=== PATIENT | male | born 1985 | race Caucasian/White ===

== ENCOUNTER 2018-01-27 18:26 | Inpatient (IN) ==
[~2018-01-27 18:26] MED LIST: *HR* Etomidate 20 MG/10 ML AMPUL IVP ONE; *HR* Rocuronium Bromide 100 MG/10 ML VIAL IVC ONE
[2018-01-27] MEDS ORDERED: 0.9 % Sodium Chloride 1,000 ML IVC ONE ×2 (18:41→19:21)
[2018-01-27] MEDS ORDERED: Isovue-370 500 ML INFUS..BTL IV ONE ×2 (18:41→19:00)
--- NOTE | 2018-01-27 18:44 | Emergency Department Note ---
Disposition Clinical Impression: Overdose, Hypoxia, Respiratory failure, Aspiration pneumonia, Severe sepsis Disposition: Admitted As Inpatient Condition: Serious General Adult HPI - General Chief complaint: ED Overdose Time Seen by Provider: 01/27/18 18:42 Source: EMS Mode of arrival: EMS Limitations: altered mental status Nursing Notes Reviewed: Yes Vital Signs Reviewed: Yes - History of Present Illness HPI Narrative: Patient is a 32-year-old male coming in by squad a call was placed concern for overdose. Patient arrived by squad the patient received 8 mg of Narcan nasally and 4 mg IV with no response initially with pulse oxygen saturations in the 60% . On arrival to the ED the patient was alert. While undergoing primary assessment the patient's oxygen saturation was 80% and his temperature was found to be 96.5% so the patient's airway was taken over, patient was intubated and Bear hugger was placed. Pain Scale: 0 - Related Data Home Medications Medication Instructions Recorded Confirmed No Known Home Drugs 01/28/18 01/28/18 Allergies Allergy/AdvReac Type Severity Reaction Status Date / Time citalopram [From Celexa] AdvReac See Verified 01/27/18 18:35 Comments Limitations: ROS unobtainable due to patients medical condition Past Medical History - Past Medical History Attestation: Yes The following information was validated with the patient. Medical history: Reports: hepatitis Psychiatric history: Reports: anxiety - Social History Smoking Status: Unknown if ever smoked Smokeless Tobacco Status: No Alcohol use: Reports: occasionally Drug use: Reports: marijuana, IV Drug Use Physical Exam On arrival patient's pulse oxygenation is 60%, heart rate was tachycardic in the 130s blood pressure was stable and respiratory 22. - General Limitations: altered mental status General appearance: lethargic, in distress - Head Head exam: atraumatic, normal inspection - Eye Eye exam: Present: normal appearance, PERRL - ENT ENT exam: normal exam, mucous membranes dry - Neck Neck exam: Present: normal inspection, trachea midline - Chest Chest inspection: Present: normal inspection, symmetric chest wall rise - Respiratory Respiratory exam: Present: normal lung sounds bilaterally, respiratory distress - Cardiovascular Cardiovascular exam: Present: tachycardia, normal heart sounds, +S1, +S2 - Abdominal Exam Abdominal exam: Present: soft, Non-Tender, hypoactive bowel sounds - Neurological Exam Neurological exam: Present: alert - Skin Skin exam: Present: dry Course Course Narrative: Due to patient's low oxygen saturation 80% even with nonrebreather mask stereos deemed unsafe and there are concerns of aspiration plan at this time was to control the patient's airway. Patient was given etomidate and rocuronium for an ET tube was placed successful on the first attempt. Patient's oxygen saturation remains at 80%. Prior to intubation the patient was alert and he was speaking however he was also somnolent. Patient will undergo a head CT. Vital Signs Temperature 96.5 F L 01/27/18 18:28 Pulse Rate 114 01/27/18 18:28 Respiratory Rate 24 01/27/18 18:28 Blood Pressure 114/89 01/27/18 18:28 O2 Sat by Pulse Oximetry 66 01/27/18 18:28 Temperature 99.6 F 01/28/18 07:42 Pulse Rate 96 01/28/18 10:00 Respiratory Rate 20 01/28/18 10:00 Blood Pressure 109/53 01/28/18 10:00 O2 Sat by Pulse Oximetry 95 01/28/18 10:00 Oxygen Delivery Oxygen Delivery Ventilator Medical Decision Making - Medical Records Medical records reviewed: Yes I reviewed the patient's medical records. - Lab Data Result diagrams: 01/28/18 02:51 01/28/18 02:51 Lab Results 01/27/18 01/27/18 01/27/18 Range/Units 18:41 18:41 18:42 WBC 28.0 H (4.3-11.1) K/mcL RBC 5.32 (4.19-5.50) M/mcL Hgb 16.4 (12.9-16.9) g/dL Hct 50.1 (37.5-50.1) % MCV 94.2 (83.0-100.0) fL MCH 30.8 (28.0-33.3) pg MCHC 32.7 (31.6-35.5) g/dL RDW 12.6 (11.5-14.5) % Plt Count 411 H (140-400) K/mcL MPV 8.5 L (9.4-12.4) fL Immature Gran % 1.3 (0-4) % Seg Neutrophils % 81.0 % Lymphocytes % 14.3 % Monocytes % 2.7 % Eosinophils % 0.4 % Basophils % 0.3 % Neutrophils # 22.7 H (1.6-8.9) K/mcL Lymphocytes # 4.0 (0.6-4.6) K/mcL Monocytes # 0.8 (0.0-1.3) K/mcL Eosinophils # 0.1 (0.0-0.6) K/mcL Basophils # 0.1 (0.0-0.2) K/mcL Toxic Granulation Present A (Not Present) Platelet Estimate Normal (Normal) Sample Site ABG pH (7.32-7.45) pH Units ABG pCO2 (35-45) mmHg ABG pO2 (85-104) mmHg ABG HCO3 (21-27) mEq/L ABG Total CO2 (20-26) mEq/L ABG O2 Saturation (95-98) % ABG Base Excess (-2 to 3) mEq/L Niles Test Respiration Rate O2 Delivery Device Blood Gas Modality Inspired O2 (1-15=lpm [id number]=%) Tidal Volume cc PEEP cm H2O Sodium 136 (136-145) mEq/L Potassium 4.1 (3.5-5.1) mEq/L Chloride 99 (98-107) mEq/L Carbon Dioxide 26 (23-29) mEq/L BUN 13 (6-20) mg/dL Creatinine 1.21 (0.70-1.30) mg/dL Est GFR ( Amer) > 60 (> 60) Est GFR (Non-Af Amer) > 60 (> 60) BUN/Creatinine Ratio 11 (6-26) Glucose 161 H (70-105) mg/dL Calculated Osmolality 286 (280-300) Lactic Acid 3.4 H (0.5-2.2) mmol/L Calcium 9.2 (8.6-10.3) mg/dL Total Bilirubin 0.4 (0.3-1.0) mg/dL Direct Bilirubin 0.1 (0.0-0.2) mg/dL Indirect Bilirubin 0.3 (0.0-1.2) mg/dL AST 38 (13-39) Units/L ALT 47 (7-52) Units/L Alkaline Phosphatase 88 (34-104) Units/L Ammonia (16-53) mcmol/L Troponin I < 0.03 (< 0.04) ng/mL Serum Total Protein 7.9 (6.4-8.9) g/dL Albumin 3.9 (3.5-5.7) g/dL Globulin 4.0 H (2.4-3.5) g/dL Albumin/Globulin Ratio 1.0 L (1.1-2.2) Urine Color (Yellow) Urine Clarity (Clear) Urine pH (5.0-8.0) pH Units Ur Specific [place] (1.010-1.025) Urine Protein (Neg-Trace) mg/dL Urine Glucose (UA) (Normal) mg/dL Urine Ketones (Negative) mg/dL Urine Blood (Negative) Urine Nitrite (Negative) Urine Bilirubin (Negative) Urine Urobilinogen (Normal) mg/dL Ur Leukocyte Esterase (Negative) Urine Microscopic WBC (0-3) per hpf Ur Squamous Epith Cells (None-Few) per lpf Urine Bacteria (None-Few) per hpf Hyaline Casts (None-Few) per lpf Urine Sperm Salicylates < 2.5 L (15.0-30.0) mg/dL Urine Opiates Screen (Otipiz=813) ng/mL Acetaminophen < 10 L (10-20) mcg/mL Ur Barbiturates Screen (Fmhjye=282) ng/mL Ur Phencyclidine Scrn (Cutoff=25) ng/mL Ur Amphetamines Screen (Eiksuh=6433) ng/mL U Benzodiazepines Scrn (Qwvaoc=174) ng/mL Urine Cocaine Screen (Cutoff= 300) ng/mL U Marijuana (THC) Screen (Cutoff = 50) ng/mL Ethyl Alcohol < 10 (Less than 10) mg/dL 01/27/18 01/27/18 01/27/18 Range/Units 19:14 19:14 19:29 WBC (4.3-11.1) K/mcL RBC (4.19-5.50) M/mcL Hgb (12.9-16.9) g/dL Hct (37.5-50.1) % MCV (83.0-100.0) fL MCH (28.0-33.3) pg MCHC (31.6-35.5) g/dL RDW (11.5-14.5) % Plt Count (140-400) K/mcL MPV (9.4-12.4) fL Immature Gran % (0-4) % Seg Neutrophils % % Lymphocytes % % Monocytes % % Eosinophils % % Basophils % % Neutrophils # (1.6-8.9) K/mcL Lymphocytes # (0.6-4.6) K/mcL Monocytes # (0.0-1.3) K/mcL Eosinophils # (0.0-0.6) K/mcL Basophils # (0.0-0.2) K/mcL Toxic Granulation (Not Present) Platelet Estimate (Normal) Sample Site R Radial ABG pH 7.30 L (7.32-7.45) pH Units ABG pCO2 55 H (35-45) mmHg ABG pO2 76 L (85-104) mmHg ABG HCO3 27 (21-27) mEq/L ABG Total CO2 29 H (20-26) mEq/L ABG O2 Saturation 93 L (95-98) % ABG Base Excess -1 (-2 to 3) mEq/L Niles Test Positive Respiration Rate 16 O2 Delivery Device Adult Vent Blood Gas Modality ASSIST CONTROL Inspired O2 100.0 (1-15=lpm wg58-031=%) Tidal Volume 550 cc PEEP 12 cm H2O Sodium (136-145) mEq/L Potassium (3.5-5.1) mEq/L Chloride (98-107) mEq/L Carbon Dioxide (23-29) mEq/L BUN (6-20) mg/dL Creatinine (0.70-1.30) mg/dL Est GFR ( Amer) (> 60) Est GFR (Non-Af Amer) (> 60) BUN/Creatinine Ratio (6-26) Glucose (70-105) mg/dL Calculated Osmolality (280-300) Lactic Acid (0.5-2.2) mmol/L Calcium (8.6-10.3) mg/dL Total Bilirubin (0.3-1.0) mg/dL Direct Bilirubin (0.0-0.2) mg/dL Indirect Bilirubin (0.0-1.2) mg/dL AST (13-39) Units/L ALT (7-52) Units/L Alkaline Phosphatase (34-104) Units/L Ammonia (16-53) mcmol/L Troponin I (< 0.04) ng/mL Serum Total Protein (6.4-8.9) g/dL Albumin (3.5-5.7) g/dL Globulin (2.4-3.5) g/dL Albumin/Globulin Ratio (1.1-2.2) Urine Color Yellow (Yellow) Urine Clarity Clear (Clear) Urine pH 6.0 (5.0-8.0) pH Units Ur Specific [place] >= 1.030 H (1.010-1.025) Urine Protein 30 H (Neg-Trace) mg/dL Urine Glucose (UA) Normal (Normal) mg/dL Urine Ketones Negative (Negative) mg/dL Urine Blood Negative (Negative) Urine Nitrite Negative (Negative) Urine Bilirubin Negative (Negative) Urine Urobilinogen Normal (Normal) mg/dL Ur Leukocyte Esterase Negative (Negative) Urine Microscopic WBC 3-5 H (0-3) per hpf Ur Squamous Epith Cells Few (None-Few) per lpf Urine Bacteria Few (None-Few) per hpf Hyaline Casts Few (None-Few) per lpf Urine Sperm Present Salicylates (15.0-30.0) mg/dL Urine Opiates Screen Positive H (Okhvna=821) ng/mL Acetaminophen (10-20) mcg/mL Ur Barbiturates Screen Negative (Wixrux=693) ng/mL Ur Phencyclidine Scrn Negative (Cutoff=25) ng/mL Ur Amphetamines Screen Positive H (Ghxemi=7235) ng/mL U Benzodiazepines Scrn Positive H (Ilbcex=619) ng/mL Urine Cocaine Screen Negative (Cutoff= 300) ng/mL U Marijuana (THC) Screen Positive H (Cutoff = 50) ng/mL Ethyl Alcohol (Less than 10) mg/dL 01/27/18 Range/Units 20:20 WBC (4.3-11.1) K/mcL RBC (4.19-5.50) M/mcL Hgb (12.9-16.9) g/dL Hct (37.5-50.1) % MCV (83.0-100.0) fL MCH (28.0-33.3) pg MCHC (31.6-35.5) g/dL RDW (11.5-14.5) % Plt Count (140-400) K/mcL MPV (9.4-12.4) fL Immature Gran % (0-4) % Seg Neutrophils % % Lymphocytes % % Monocytes % % Eosinophils % % Basophils % % Neutrophils # (1.6-8.9) K/mcL Lymphocytes # (0.6-4.6) K/mcL Monocytes # (0.0-1.3) K/mcL Eosinophils # (0.0-0.6) K/mcL Basophils # (0.0-0.2) K/mcL Toxic Granulation (Not Present) Platelet Estimate (Normal) Sample Site ABG pH (7.32-7.45) pH Units ABG pCO2 (35-45) mmHg ABG pO2 (85-104) mmHg ABG HCO3 (21-27) mEq/L ABG Total CO2 (20-26) mEq/L ABG O2 Saturation (95-98) % ABG Base Excess (-2 to 3) mEq/L Niles Test Respiration Rate O2 Delivery Device Blood Gas Modality Inspired O2 (1-15=lpm ca43-359=%) Tidal Volume cc PEEP cm H2O Sodium (136-145) mEq/L Potassium (3.5-5.1) mEq/L Chloride (98-107) mEq/L Carbon Dioxide (23-29) mEq/L BUN (6-20) mg/dL Creatinine (0.70-1.30) mg/dL Est GFR ( Amer) (> 60) Est GFR (Non-Af Amer) (> 60) BUN/Creatinine Ratio (6-26) Glucose (70-105) mg/dL Calculated Osmolality (280-300) Lactic Acid (0.5-2.2) mmol/L Calcium (8.6-10.3) mg/dL Total Bilirubin (0.3-1.0) mg/dL Direct Bilirubin (0.0-0.2) mg/dL Indirect Bilirubin (0.0-1.2) mg/dL AST (13-39) Units/L ALT (7-52) Units/L Alkaline Phosphatase (34-104) Units/L Ammonia 57 H (16-53) mcmol/L Troponin I (< 0.04) ng/mL Serum Total Protein (6.4-8.9) g/dL Albumin (3.5-5.7) g/dL Globulin (2.4-3.5) g/dL Albumin/Globulin Ratio (1.1-2.2) Urine Color (Yellow) Urine Clarity (Clear) Urine pH (5.0-8.0) pH Units Ur Specific [place] (1.010-1.025) Urine Protein (Neg-Trace) mg/dL Urine Glucose (UA) (Normal) mg/dL Urine Ketones (Negative) mg/dL Urine Blood (Negative) Urine Nitrite (Negative) Urine Bilirubin (Negative) Urine Urobilinogen (Normal) mg/dL Ur Leukocyte Esterase (Negative) Urine Microscopic WBC (0-3) per hpf Ur Squamous Epith Cells (None-Few) per lpf Urine Bacteria (None-Few) per hpf Hyaline Casts (None-Few) per lpf Urine Sperm Salicylates (15.0-30.0) mg/dL Urine Opiates Screen (Xhxkqv=573) ng/mL Acetaminophen (10-20) mcg/mL Ur Barbiturates Screen (Bdgvsu=987) ng/mL Ur Phencyclidine Scrn (Cutoff=25) ng/mL Ur Amphetamines Screen (Tqsvur=1623) ng/mL U Benzodiazepines Scrn (Phihkk=423) ng/mL Urine Cocaine Screen (Cutoff= 300) ng/mL U Marijuana (THC) Screen (Cutoff = 50) ng/mL Ethyl Alcohol (Less than 10) mg/dL S.B.A.R. - S.B.A.R. Situation: Demographics, MOA Background: Presenting Complaint, Relevant PMH, Meds, & Allergies Assessment: Vital Signs, Course and respsone to treatment, Exam Concerns, Patient/Family Expectation, Pertinant Lab Results Recommendation: Barrier(s) to disposition, Recommendation based on pending studies, treatments, or consults S.B.A.R. Report Given to: Dr. Diamond and Dr. Bush S.B.A.R. Repor Time: 19:00
[2018-01-27] MEDS ORDERED: Propofol 500 MG/50 ML INFUS..BTL IVC SCH (18:45)
--- NOTE | 2018-01-27 18:49 | Emergency Department Note ---
Disposition Clinical Impression: Hypoxia Overdose Qualifiers: Encounter type: initial encounter Injury intent: accidental or unintentional Qualified Code(s): T50.901A - Poisoning by unspecified drugs, medicaments and biological substances, accidental (unintentional), initial encounter Disposition: Admitted As Inpatient Referrals: NONE,PCP [Primary Care Provider] - Forms: ED Satisfaction Letter General Adult HPI - General Chief complaint: ED Overdose Stated complaint: OD/unresponsive Time Seen by Provider: 01/27/18 18:42 Source: EMS Mode of arrival: EMS Limitations: altered mental status - History of Present Illness Pain Scale: 0 - Related Data Allergies Allergy/AdvReac Type Severity Reaction Status Date / Time citalopram [From Celexa] AdvReac See Verified 01/27/18 18:35 Comments Past Medical History - Past Medical History Medical history: Reports: hepatitis Psychiatric history: Reports: anxiety - Social History Smoking Status: Unknown if ever smoked Smokeless Tobacco Status: No Alcohol use: Reports: occasionally Drug use: Reports: marijuana, IV Drug Use Physical Exam - General Limitations: altered mental status General appearance: lethargic, in distress Course Vital Signs Temperature 96.5 F L 01/27/18 18:28 Pulse Rate 114 01/27/18 18:28 Respiratory Rate 24 01/27/18 18:28 Blood Pressure 114/89 01/27/18 18:28 O2 Sat by Pulse Oximetry 66 01/27/18 18:28 Temperature 96.5 F L 01/27/18 18:28 Pulse Rate 125 01/27/18 18:41 Respiratory Rate 24 01/27/18 18:41 Blood Pressure 125/76 01/27/18 18:41 O2 Sat by Pulse Oximetry 83 01/27/18 18:41 Oxygen Delivery Oxygen Delivery Ambu Bag Attestation Statement - Attestation Attestation: I examined this patient and my medical decision-making was reviewed with the Resident Physician. I agree with the documented findings, disposition and treatment plan as described except to the extent set forth below. 32 sharee [place] male prsente to the ED via EMS after an unknown overdose. Rona was found at the house with needle but genomics scientist couldnt figured out what had taken. He had recievd 12mg of narcan without improvement and on arrival he was 66% and although he was answering questions he was flucnatcting in mental status and never got above 80% on NRB. Rona was intubated upon arrival. WE will start overdose workup and then sign out to night team for followp on workp and admission to ICU. proprfol for sedation.
[2018-01-27 19:02] LABS: Basophils % 0.3 %; Eosinophils % 0.4 %; Mean Corpuscular HGB Conc 32.7 g/dL (31.6-35.5)
[2018-01-27 19:03] LABS: Basophils # 0.1 K/mcL (0.0-0.2); Eosinophils # 0.1 K/mcL (0.0-0.6); Hematocrit 50.1 % (37.5-50.1); Hemoglobin 16.4 g/dL (12.9-16.9); Immature Granulocytes % 1.3 % (0-4); Lymphocytes % 14.3 %; Mean Corpuscular Hemoglobin 30.8 pg (28.0-33.3); Mean Corpuscular Volume 94.2 fL (83.0-100.0); Mean Platelet Volume 8.5 fL (9.4-12.4); Monocytes # 0.8 K/mcL (0.0-1.3); Monocytes % 2.7 %; Neutrophils # 22.7 K/mcL (1.6-8.9); Platelet Count 411 K/mcL (140-400); Red Blood Count 5.32 M/mcL (4.19-5.50); Red Cell Distribution Width 12.6 % (11.5-14.5)
[2018-01-27] MEDS ORDERED: *HR* Rocuronium Bromide 50 MG/5 ML VIAL IVP ONE ×2 (19:06→20:13)
[2018-01-27] MEDS ORDERED: *HR* Etomidate 20 MG/10 ML AMPUL IVP ONE ×2 (19:06→19:22)
[2018-01-27 19:20] LABS: Platelet Estimate Normal (Normal); Toxic Granulation Present (Not Present)
[2018-01-27 19:23] LABS: Bilirubin,Urine Negative (Negative); Blood,Urine Negative (Negative); Clarity,Urine Clear (Clear); Color,Urine Yellow (Yellow); Glucose,Urine (UA) Normal (Normal); Ketones,Urine Negative (Negative); Leukocyte Esterase,Urine Negative (Negative); Nitrite,Urine Negative (Negative); Protein,Urine 30 mg/dL (Neg-Trace); Specific Gravity,Urine >= 1.030 (1.010-1.025); Urobilinogen,Urine Normal (Normal)
[2018-01-27 19:23] LABS: Acetaminophen < 10 mcg/mL (10-20)
[2018-01-27] MEDS ORDERED: Piperacillin/Tazobactam 3.375 GM in 0.9 % Sodium Chloride Mini Bag 100 ML IVPB ONE (19:24)
[2018-01-27 19:29] LABS: Alanine Aminotransferase 47 Units/L (7-52); Albumin 3.9 g/dL (3.5-5.7); Alkaline Phosphatase 88 Units/L (34-104); Aspartate Amino Transferase 38 Units/L (13-39); BUN/Creatinine Ratio 11 (6-26); Bilirubin,Direct 0.1 mg/dL (0.0-0.2); Bilirubin,Indirect 0.3 mg/dL (0.0-1.2); Bilirubin,Total 0.4 mg/dL (0.3-1.0); Blood Urea Nitrogen 13 mg/dL (6-20); Calcium 9.2 mg/dL (8.6-10.3); Carbon Dioxide 26 mEq/L (23-29); Chloride 99 mEq/L (98-107); Ethanol < 10 mg/dL (Less than 10); Glucose 161 mg/dL (70-105); Osmolality,Calculated 286 (280-300); Potassium 4.1 mEq/L (3.5-5.1); Salicylate < 2.5 mg/dL (15.0-30.0); Sodium 136 mEq/L (136-145); Total Protein 7.9 g/dL (6.4-8.9); Troponin I < 0.03 ng/mL (< 0.04); eGFR For African Americans > 60 (> 60); eGFR For Non-African Americans > 60 (> 60)
[2018-01-27 19:32] LABS: Bacteria,Urine Few per hpf (None-Few); Hyaline Casts,Urine Few per lpf (None-Few); Sperm,Urine Present; Squamous Epithelial Cell,Urine Few per lpf (None-Few)
[2018-01-27 19:33] LABS: ABG Base Excess -1 mEq/L (-2 to 3); ABG HCO3 27 mEq/L (21-27); ABG Oxygen Saturation 93 % (95-98); ABG PCO2 55 mmHg (35-45); ABG PO2 76 mmHg (85-104); ABG TCO2 29 mEq/L (20-26); Blood Gas Modality ASSIST CONTROL; Blood Gas PEEP 12 cm H2O; Blood Gas Respiration Rate 16; Blood Gas VT 550 cc
[2018-01-27 19:49] LABS: Amphetamine Screen,Urine Positive ng/mL (Cutoff=1000); Barbiturate Screen,Urine Negative ng/mL (Cutoff=200); Benzodiazepines Screen,Urine Positive ng/mL (Cutoff=200); Cannabinoid Screen,Urine Positive ng/mL (Cutoff = 50); Cocaine Screen,Urine Negative ng/mL (Cutoff= 300); Opiate Screen,Urine Positive ng/mL (Cutoff=300); Phencyclidine Screen,Urine Negative ng/mL (Cutoff=25)
[2018-01-27] MEDS ORDERED: *HR* Midazolam HCl 2 MG/2 ML VIAL ONE ×2 (19:59→20:13)
[2018-01-27] MEDS ORDERED: *HR* Midazolam HCl 2 MG/2 ML VIAL IVP ONE ×2 (20:04→20:12)
[2018-01-27] MEDS: Dexmedetomidine HCl 200 MCG/50 ML MLS IVC SCH (20:06)
--- NOTE | 2018-01-27 20:50 | Emergency Department Note ---
Disposition Clinical Impression: Hypoxia, Aspiration pneumonia, Severe sepsis Overdose Qualifiers: Encounter type: initial encounter Injury intent: accidental or unintentional Qualified Code(s): T50.901A - Poisoning by unspecified drugs, medicaments and biological substances, accidental (unintentional), initial encounter Respiratory failure Qualifiers: Chronicity: acute Respiratory failure complication: hypoxia Qualified Code(s): J96.01 - Acute respiratory failure with hypoxia Disposition: Admitted As Inpatient Condition: Serious General Adult HPI - General Chief complaint: ED Overdose Stated complaint: OD/unresponsive Time Seen by Provider: 01/27/18 18:42 Source: EMS Mode of arrival: EMS Limitations: altered mental status Nursing Notes Reviewed: Yes Vital Signs Reviewed: Yes - History of Present Illness HPI Narrative: Patient was signed out by the prior provider. Please see their documentation for complete history and physical. Briefly, the patient was found unresponsive. Patient does have a history of substance abuse with drug paraphernalia around. Patient was given 12mg Narcan which gradually improved his symptoms until arrival to the emergency department. At the emergency department it appears the patient had fluctuant levels of consciousness. Patient was found to be hypoxic not improving on BiPAP. The prior provider decided the patient required intubation. Patient's neurologic exam prior to induration appeared to be alert with fluctuating levels of consciousness moving all extremities and following commands. Pain Scale: 0 - Related Data Allergies Allergy/AdvReac Type Severity Reaction Status Date / Time citalopram [From Celexa] AdvReac See Verified 01/27/18 18:35 Comments Limitations: ROS unobtainable due to patients medical condition Past Medical History - Past Medical History Source: old records reviewed Medical history: Reports: hepatitis Psychiatric history: Reports: anxiety - Social History Smoking Status: Unknown if ever smoked Smokeless Tobacco Status: No Alcohol use: Reports: occasionally Drug use: Reports: marijuana, IV Drug Use Physical Exam - General Limitations: altered mental status General appearance: lethargic, in distress - Head Head exam: atraumatic, normocephalic, normal inspection - Eye Eye exam: Present: normal appearance, PERRL - ENT ENT exam: normal exam, other (Endotracheal tube present.) - Neck Neck exam: Present: normal inspection - Chest Chest inspection: Present: normal inspection, symmetric chest wall rise. Absent : rash - Respiratory Respiratory exam: Present: other (Chemical breath sounds) - Cardiovascular Cardiovascular exam: Present: regular rate, tachycardia - Abdominal Exam Abdominal exam: Present: soft - Extremities Exam Extremities exam: Present: normal inspection - Back Exam Back exam: Present: normal inspection - Neurological Exam Neurological exam: Present: other (Mechanically ventilated sedated.) Course Course Narrative: Patient is mechanically ventilated and sedated. Patient will arouse and breathing over the vent. Patient's initial chest x-ray was concerning for possible pneumonia. Patient likely aspirated. Patient does have a leukocytosis and is concerning for possible sepsis with an elevated lactate. Patient was covered for most likely source of infection the lungs. Awaiting CT angios of the neck CT of the head CTA of the chest. Patient will be admitted to the ICU for further management and care. - Reevaluation(s) Reevaluation #1: Patient has been difficult to sedate. Will attempt to transition over to Versed. Time: 21:55 Vital Signs Temperature 96.5 F L 01/27/18 18:28 Pulse Rate 114 01/27/18 18:28 Respiratory Rate 24 01/27/18 18:28 Blood Pressure 114/89 01/27/18 18:28 O2 Sat by Pulse Oximetry 66 01/27/18 18:28 Temperature 99.7 F H 01/27/18 22:53 Pulse Rate 90 01/28/18 03:00 Respiratory Rate 20 01/28/18 03:00 Blood Pressure 118/69 01/28/18 03:00 O2 Sat by Pulse Oximetry 98 01/28/18 03:00 Oxygen Delivery Oxygen Delivery Ventilator Medical Decision Making - [facility] Narrative Medical decision making narrative: Patient was signed out by the prior provider. Briefly the patient was a 32-year -old male who presented for overdose requiring multiple doses of Narcan. Patient was found to be hypoxic requiring intubation. Patient's chest x-ray as well as CAT scan findings are concerning for aspiration pneumonia. Patient was started on broad-spectrum antibiotics. Patient's labs are also consistent with infection. Patient had CT of the head as well as anterior the neck chest. Patient was found to have a lactic acidosis given the patient's clinical exam findings. Patient was treated with IV fluids. Patient will be admitted to the ICU for further management. If no family at bedside to provide any additional history. - Lab Data Lab results reviewed: Yes I reviewed the patient's lab results. Result diagrams: 01/27/18 18:41 01/27/18 18:41 Lab Results 01/27/18 01/27/18 01/27/18 Range/Units 18:41 18:41 18:42 WBC 28.0 H (4.3-11.1) K/mcL RBC 5.32 (4.19-5.50) M/mcL Hgb 16.4 (12.9-16.9) g/dL Hct 50.1 (37.5-50.1) % MCV 94.2 (83.0-100.0) fL MCH 30.8 (28.0-33.3) pg MCHC 32.7 (31.6-35.5) g/dL RDW 12.6 (11.5-14.5) % Plt Count 411 H (140-400) K/mcL MPV 8.5 L (9.4-12.4) fL Immature Gran % 1.3 (0-4) % Seg Neutrophils % 81.0 % Lymphocytes % 14.3 % Monocytes % 2.7 % Eosinophils % 0.4 % Basophils % 0.3 % Neutrophils # 22.7 H (1.6-8.9) K/mcL Lymphocytes # 4.0 (0.6-4.6) K/mcL Monocytes # 0.8 (0.0-1.3) K/mcL Eosinophils # 0.1 (0.0-0.6) K/mcL Basophils # 0.1 (0.0-0.2) K/mcL Toxic Granulation Present A (Not Present) Platelet Estimate Normal (Normal) Sample Site ABG pH (7.32-7.45) pH Units ABG pCO2 (35-45) mmHg ABG pO2 (85-104) mmHg ABG HCO3 (21-27) mEq/L ABG Total CO2 (20-26) mEq/L ABG O2 Saturation (95-98) % ABG Base Excess (-2 to 3) mEq/L Niles Test Respiration Rate O2 Delivery Device Blood Gas Modality Inspired O2 (1-15=lpm [id number]=%) Tidal Volume cc PEEP cm H2O Sodium 136 (136-145) mEq/L Potassium 4.1 (3.5-5.1) mEq/L Chloride 99 (98-107) mEq/L Carbon Dioxide 26 (23-29) mEq/L BUN 13 (6-20) mg/dL Creatinine 1.21 (0.70-1.30) mg/dL Est GFR ( Amer) > 60 (> 60) Est GFR (Non-Af Amer) > 60 (> 60) BUN/Creatinine Ratio 11 (6-26) Glucose 161 H (70-105) mg/dL Calculated Osmolality 286 (280-300) Lactic Acid 3.4 H (0.5-2.2) mmol/L Calcium 9.2 (8.6-10.3) mg/dL Total Bilirubin 0.4 (0.3-1.0) mg/dL Direct Bilirubin 0.1 (0.0-0.2) mg/dL Indirect Bilirubin 0.3 (0.0-1.2) mg/dL AST 38 (13-39) Units/L ALT 47 (7-52) Units/L Alkaline Phosphatase 88 (34-104) Units/L Ammonia (16-53) mcmol/L Troponin I < 0.03 (< 0.04) ng/mL Serum Total Protein 7.9 (6.4-8.9) g/dL Albumin 3.9 (3.5-5.7) g/dL Globulin 4.0 H (2.4-3.5) g/dL Albumin/Globulin Ratio 1.0 L (1.1-2.2) Urine Color (Yellow) Urine Clarity (Clear) Urine pH (5.0-8.0) pH Units Ur Specific [place] (1.010-1.025) Urine Protein (Neg-Trace) mg/dL Urine Glucose (UA) (Normal) mg/dL Urine Ketones (Negative) mg/dL Urine Blood (Negative) Urine Nitrite (Negative) Urine Bilirubin (Negative) Urine Urobilinogen (Normal) mg/dL Ur Leukocyte Esterase (Negative) Urine Microscopic WBC (0-3) per hpf Ur Squamous Epith Cells (None-Few) per lpf Urine Bacteria (None-Few) per hpf Hyaline Casts (None-Few) per lpf Urine Sperm Salicylates < 2.5 L (15.0-30.0) mg/dL Urine Opiates Screen (Rtjxru=784) ng/mL Acetaminophen < 10 L (10-20) mcg/mL Ur Barbiturates Screen (Hqfgxg=702) ng/mL Ur Phencyclidine Scrn (Cutoff=25) ng/mL Ur Amphetamines Screen (Tlqtbc=2098) ng/mL U Benzodiazepines Scrn (Fdepqq=544) ng/mL Urine Cocaine Screen (Cutoff= 300) ng/mL U Marijuana (THC) Screen (Cutoff = 50) ng/mL Ethyl Alcohol < 10 (Less than 10) mg/dL 01/27/18 01/27/18 01/27/18 Range/Units 19:14 19:14 19:29 WBC (4.3-11.1) K/mcL RBC (4.19-5.50) M/mcL Hgb (12.9-16.9) g/dL Hct (37.5-50.1) % MCV (83.0-100.0) fL MCH (28.0-33.3) pg MCHC (31.6-35.5) g/dL RDW (11.5-14.5) % Plt Count (140-400) K/mcL MPV (9.4-12.4) fL Immature Gran % (0-4) % Seg Neutrophils % % Lymphocytes % % Monocytes % % Eosinophils % % Basophils % % Neutrophils # (1.6-8.9) K/mcL Lymphocytes # (0.6-4.6) K/mcL Monocytes # (0.0-1.3) K/mcL Eosinophils # (0.0-0.6) K/mcL Basophils # (0.0-0.2) K/mcL Toxic Granulation (Not Present) Platelet Estimate (Normal) Sample Site R Radial ABG pH 7.30 L (7.32-7.45) pH Units ABG pCO2 55 H (35-45) mmHg ABG pO2 76 L (85-104) mmHg ABG HCO3 27 (21-27) mEq/L ABG Total CO2 29 H (20-26) mEq/L ABG O2 Saturation 93 L (95-98) % ABG Base Excess -1 (-2 to 3) mEq/L Niles Test Positive Respiration Rate 16 O2 Delivery Device Adult Vent Blood Gas Modality ASSIST CONTROL Inspired O2 100.0 (1-15=lpm [id number]=%) Tidal Volume 550 cc PEEP 12 cm H2O Sodium (136-145) mEq/L Potassium (3.5-5.1) mEq/L Chloride (98-107) mEq/L Carbon Dioxide (23-29) mEq/L BUN (6-20) mg/dL Creatinine (0.70-1.30) mg/dL Est GFR ( Amer) (> 60) Est GFR (Non-Af Amer) (> 60) BUN/Creatinine Ratio (6-26) Glucose (70-105) mg/dL Calculated Osmolality (280-300) Lactic Acid (0.5-2.2) mmol/L Calcium (8.6-10.3) mg/dL Total Bilirubin (0.3-1.0) mg/dL Direct Bilirubin (0.0-0.2) mg/dL Indirect Bilirubin (0.0-1.2) mg/dL AST (13-39) Units/L ALT (7-52) Units/L Alkaline Phosphatase (34-104) Units/L Ammonia (16-53) mcmol/L Troponin I (< 0.04) ng/mL Serum Total Protein (6.4-8.9) g/dL Albumin (3.5-5.7) g/dL Globulin (2.4-3.5) g/dL Albumin/Globulin Ratio (1.1-2.2) Urine Color Yellow (Yellow) Urine Clarity Clear (Clear) Urine pH 6.0 (5.0-8.0) pH Units Ur Specific [place] >= 1.030 H (1.010-1.025) Urine Protein 30 H (Neg-Trace) mg/dL Urine Glucose (UA) Normal (Normal) mg/dL Urine Ketones Negative (Negative) mg/dL Urine Blood Negative (Negative) Urine Nitrite Negative (Negative) Urine Bilirubin Negative (Negative) Urine Urobilinogen Normal (Normal) mg/dL Ur Leukocyte Esterase Negative (Negative) Urine Microscopic WBC 3-5 H (0-3) per hpf Ur Squamous Epith Cells Few (None-Few) per lpf Urine Bacteria Few (None-Few) per hpf Hyaline Casts Few (None-Few) per lpf Urine Sperm Present Salicylates (15.0-30.0) mg/dL Urine Opiates Screen Positive H (Znpsou=514) ng/mL Acetaminophen (10-20) mcg/mL Ur Barbiturates Screen Negative (Tpcksx=274) ng/mL Ur Phencyclidine Scrn Negative (Cutoff=25) ng/mL Ur Amphetamines Screen Positive H (Spcfnh=6060) ng/mL U Benzodiazepines Scrn Positive H (Pideqk=695) ng/mL Urine Cocaine Screen Negative (Cutoff= 300) ng/mL U Marijuana (THC) Screen Positive H (Cutoff = 50) ng/mL Ethyl Alcohol (Less than 10) mg/dL 01/27/18 Range/Units 20:20 WBC (4.3-11.1) K/mcL RBC (4.19-5.50) M/mcL Hgb (12.9-16.9) g/dL Hct (37.5-50.1) % MCV (83.0-100.0) fL MCH (28.0-33.3) pg MCHC (31.6-35.5) g/dL RDW (11.5-14.5) % Plt Count (140-400) K/mcL MPV (9.4-12.4) fL Immature Gran % (0-4) % Seg Neutrophils % % Lymphocytes % % Monocytes % % Eosinophils % % Basophils % % Neutrophils # (1.6-8.9) K/mcL Lymphocytes # (0.6-4.6) K/mcL Monocytes # (0.0-1.3) K/mcL Eosinophils # (0.0-0.6) K/mcL Basophils # (0.0-0.2) K/mcL Toxic Granulation (Not Present) Platelet Estimate (Normal) Sample Site ABG pH (7.32-7.45) pH Units ABG pCO2 (35-45) mmHg ABG pO2 (85-104) mmHg ABG HCO3 (21-27) mEq/L ABG Total CO2 (20-26) mEq/L ABG O2 Saturation (95-98) % ABG Base Excess (-2 to 3) mEq/L Niles Test Respiration Rate O2 Delivery Device Blood Gas Modality Inspired O2 (1-15=lpm [id number]=%) Tidal Volume cc PEEP cm H2O Sodium (136-145) mEq/L Potassium (3.5-5.1) mEq/L Chloride (98-107) mEq/L Carbon Dioxide (23-29) mEq/L BUN (6-20) mg/dL Creatinine (0.70-1.30) mg/dL Est GFR ( Amer) (> 60) Est GFR (Non-Af Amer) (> 60) BUN/Creatinine Ratio (6-26) Glucose (70-105) mg/dL Calculated Osmolality (280-300) Lactic Acid (0.5-2.2) mmol/L Calcium (8.6-10.3) mg/dL Total Bilirubin (0.3-1.0) mg/dL Direct Bilirubin (0.0-0.2) mg/dL Indirect Bilirubin (0.0-1.2) mg/dL AST (13-39) Units/L ALT (7-52) Units/L Alkaline Phosphatase (34-104) Units/L Ammonia 57 H (16-53) mcmol/L Troponin I (< 0.04) ng/mL Serum Total Protein (6.4-8.9) g/dL Albumin (3.5-5.7) g/dL Globulin (2.4-3.5) g/dL Albumin/Globulin Ratio (1.1-2.2) Urine Color (Yellow) Urine Clarity (Clear) Urine pH (5.0-8.0) pH Units Ur Specific [place] (1.010-1.025) Urine Protein (Neg-Trace) mg/dL Urine Glucose (UA) (Normal) mg/dL Urine Ketones (Negative) mg/dL Urine Blood (Negative) Urine Nitrite (Negative) Urine Bilirubin (Negative) Urine Urobilinogen (Normal) mg/dL Ur Leukocyte Esterase (Negative) Urine Microscopic WBC (0-3) per hpf Ur Squamous Epith Cells (None-Few) per lpf Urine Bacteria (None-Few) per hpf Hyaline Casts (None-Few) per lpf Urine Sperm Salicylates (15.0-30.0) mg/dL Urine Opiates Screen (Necxrr=303) ng/mL Acetaminophen (10-20) mcg/mL Ur Barbiturates Screen (Dhmnnm=257) ng/mL Ur Phencyclidine Scrn (Cutoff=25) ng/mL Ur Amphetamines Screen (Obrlee=2359) ng/mL U Benzodiazepines Scrn (Oiqvjv=641) ng/mL Urine Cocaine Screen (Cutoff= 300) ng/mL U Marijuana (THC) Screen (Cutoff = 50) ng/mL Ethyl Alcohol (Less than 10) mg/dL - Radiology Data Radiology results reviewed: Yes I reviewed the patient's radiology results. Chest X-Ray 01/27/18 18:41 IMPRESSION: Endotracheal and enteric tubes in place as above. Diffuse bilateral airspace disease, greater on the right, likely asymmetric edema. Extensive pneumonia, to include aspiration, could have this appearance as well. D/ / Jennifer Muñiz Cha, MD / Jennifer Muñiz Cha, MD Interpreting Provider: Jennifer Muñiz Cha, MD - EKG Data EKG #1 EKG attestation: Yes I reviewed and interpreted this EKG. EKG shows normal: sinus rhythm Rate: tachycardia Rhythm: NSR [place]/QRS: normal When compared to previous EKG there are: previous EKG unavailable Interpretation: no acute changes S.B.A.R. - S.B.A.RArabella Situation: Demographics Background: Presenting Complaint Assessment: Vital Signs, Course and respsone to treatment, Patient/Family Expectation Recommendation: Barrier(s) to disposition, Recommendation based on pending studies, treatments, or consults S.B.A.RArabella Report Given to: Dr. Yasmin Nye Repor Time: 21:47 Sepsis Reassessment Note - Evaluation Current Stage of Sepsis: severe sepsis Possible Source of Sepsis: pulmonary - Focused Exam Date of Encounter: 01/27/18 Time of Encounter: 21:39 Vital Signs: Vital Signs Temp Pulse Resp BP Pulse Ox 01/27/18 21:50 120 127/85 100 01/27/18 21:30 118 135/72 01/27/18 21:11 123 146/98 01/27/18 21:06 20 95 01/27/18 20:30 129 110/66 01/27/18 20:10 123 102/65 01/27/18 19:50 113 20 116/76 99 01/27/18 19:26 16 90 01/27/18 19:14 125 22 135/86 95 01/27/18 19:09 92 01/27/18 18:41 125 24 125/76 83 01/27/18 18:28 96.5 F L 114 24 114/89 66 Respiratory Exam: Present: crackles (mechanically ) Cardiovascular Exam: Present: RRR Capillary Refill: < 2 seconds Peripheral Pulse Strength: 2+ slightly diminished Peripheral Pulse Location: Radial Skin Exam: normal turgor
--- NOTE | 2018-01-27 21:35 | Internal Med History&Physical ---
Date of Encounter: 01/28/18 Time of Encounter: 21:32 Internal Medicine - H&P: HPI Chief complaint: Overdose Admitted From: Emergency Dept Plans for Post Hospital Care: Home History of present illness: Mr. Palacios is a 32 year old male with known past medical history of hep c and multi- substance abuse who was brought in by squad for concerns of overdose. The patient was given a total of 12 mg of Narcan which caused the patient to start vomiting. His oxygen saturation was 60% and had to be intubated. The patient's temperature was 96.5 upon arrival. He was tachycardic with a rate of 125. Patient was in sinus rhythm. Workup showed leukocytosis with WBC count of 28. ABG obtained on the vent showed a pH of 7.30, PCO2 of 55, PO2 of 76, bicarbonate 27. Lactic acid was 3.4. Urinalysis was not indicative for UTI. Urine drug screen was positive for opioids, amphetamines, benzos, and marijuana. The patient was given normal saline boluses, vancomycin, Zosyn in the ED. He was given Versed 6 mg total in the ED. Chest x-ray showed diffuse bilateral airspace disease greater on the right. CT chest confirmed infiltrates likely to be aspiration. CT head, CT cervical spine were unremarkable. No family was present in the ED. Unsure who [facility] to be [facility]. Past Med Surg Social Fam HX - Past Medical History Medical history: hepatitis Psychiatric history: anxiety - Social History Smoking Status: Unknown if ever smoked Smokeless Tobacco Status: No Alcohol use: occasionally Drug use: marijuana, IV Drug Use Internal Medicine - H&P: Meds 3 Allergy/AdvReac Type Severity Reaction Status Date / Time citalopram [From Celexa] AdvReac See Verified 01/27/18 18:35 Comments ROS unobtainable: due to endotracheal tube - Constitutional Vitals: Temp Pulse Resp BP Pulse Ox 96.5 F L 113 20 116/76 95 01/27/18 18:28 01/27/18 19:50 01/27/18 21:06 01/27/18 19:50 01/27/18 21:06 Exam: GEN: Intubated and sedated HEENT: AT, NC, No cyanosis, oral mucosa is moist, No JVD Lymphatics: No lymphadenoapthy Eyes: Extrocular muscles intact, anicteric CVS:RRR. S1, S2, No m/r/g RESP: Diminished with coarse breath sounds throughout. ABD: Soft, NT, ND, +BS EXT: No edema, No rashes, 2+ DP NEURO: Pupils are equal and reactive. Complete neurological examination could not be assessed due to patient's sedation and being on the ventilator. Internal Med - H&P Results - Labs CBC & Chem 7: 01/27/18 18:41 01/27/18 18:41 Labs: Short CBC 01/27/18 Range/Units 18:41 WBC 28.0 H (4.3-11.1) K/mcL Hgb 16.4 (12.9-16.9) g/dL Hct 50.1 (37.5-50.1) % Plt Count 411 H (140-400) K/mcL Neutrophils # 22.7 H (1.6-8.9) K/mcL BMP 01/27/18 18:41 Sodium 136 Potassium 4.1 Chloride 99 Carbon Dioxide 26 BUN 13 Creatinine 1.21 Glucose 161 H Calcium 9.2 Cardiac Enzymes 01/27/18 Range/Units 18:41 Troponin I < 0.03 (< 0.04) ng/mL Liver Function 01/27/18 Range/Units 18:41 Total Bilirubin 0.4 (0.3-1.0) mg/dL Direct Bilirubin 0.1 (0.0-0.2) mg/dL AST 38 (13-39) Units/L ALT 47 (7-52) Units/L Alkaline Phosphatase 88 (34-104) Units/L Albumin 3.9 (3.5-5.7) g/dL Urine 01/27/18 Range/Units 19:14 Urine Color Yellow (Yellow) Urine Clarity Clear (Clear) Urine pH 6.0 (5.0-8.0) pH Units Ur Specific [place] >= 1.030 H (1.010-1.025) Urine Protein 30 H (Neg-Trace) mg/dL Urine Glucose (UA) Normal (Normal) mg/dL - ABG Interpretation ABG results: 01/27/18 19:29 ABG pH 7.30 L ABG pCO2 55 H ABG pO2 76 L ABG HCO3 27 ABG Total CO2 29 H ABG O2 Saturation 93 L ABG Base Excess -1 - Impressions ITS Impressions Chest X-Ray 01/27/18 18:41 IMPRESSION: Endotracheal and enteric tubes in place as above. Diffuse bilateral airspace disease, greater on the right, likely asymmetric edema. Extensive pneumonia, to include aspiration, could have this appearance as well. D/ / Jennifer Muñiz Cha, MD / Jennifer Muñiz Cha, MD Interpreting Provider: Jennifer Muñiz Cha, MD - Assessment and plan (1) Acute hypoxemic respiratory failure Current Visit: Yes Status: Acute Assessment and plan: Likely from overdose and aspiration pneumonia. Will admit and c/s the duplicating machine servicer. patient is on the vent. c/w vent support. We will add Versed drip for sedation. Nebs. Treat underlying cause as below (2) Severe sepsis Current Visit: Yes Status: Acute Assessment and plan: Meets criteria with leukocytosis, respiratroy failure, lactic acidosis. Will treat as below. Repeat lactic acid. c/w maintenance IV fluids. (3) Aspiration pneumonia Current Visit: Yes Status: Acute Assessment and plan: Given vanco and zosyn in the ED. Will c/w zosyn for now. f/u on blood cultures. Collect sputum/secretion cultures. Nebs Qualifiers: Aspiration pneumonia type: unspecified Laterality: unspecified laterality Lung location: unspecified part of lung Qualified Code(s): J69.0 - Pneumonitis due to inhalation of food and vomit (4) Lactic acidosis Current Visit: Yes Status: Acute Assessment and plan: Given IV fluids in the ED. Will repeat lactic acid (5) Overdose Current Visit: Yes Status: Acute Assessment and plan: c/w social services analyst. Qualifiers: Encounter type: initial encounter Injury intent: accidental or unintentional Qualified Code(s): T50.901A - Poisoning by unspecified drugs, medicaments and biological substances, accidental (unintentional), initial encounter (6) DVT prophylaxis Current Visit: Yes Status: Acute Assessment and plan: heparin SQ - Time Spent With Patient Total time spent is greater than 50% in coordination of care (as documented) at patient's floor/unit and/or counseling patient:
[2018-01-27] MEDS ORDERED: Ondansetron 4 MG/2 ML VIAL IVP PRN (21:41)
[2018-01-27] MEDS ORDERED: Naloxone 0.4 MG/ML INJ IVP PRN (21:42)
[2018-01-27] MEDS ORDERED: Acetaminophen 325 MG TABLET PO PRN (21:42)
--- NOTE | 2018-01-27 21:55 | Emergency Department Note ---
Disposition Clinical Impression: Hypoxia, Severe sepsis Overdose Qualifiers: Encounter type: initial encounter Injury intent: accidental or unintentional Qualified Code(s): T50.901A - Poisoning by unspecified drugs, medicaments and biological substances, accidental (unintentional), initial encounter Respiratory failure Qualifiers: Chronicity: acute Respiratory failure complication: hypoxia Qualified Code(s): J96.01 - Acute respiratory failure with hypoxia Aspiration pneumonia Qualifiers: Aspiration pneumonia type: unspecified Laterality: unspecified laterality Lung location: unspecified part of lung Qualified Code(s): J69.0 - Pneumonitis due to inhalation of food and vomit Disposition: Admitted As Inpatient Condition: Serious General Adult HPI - General Chief complaint: ED Overdose Stated complaint: OD/unresponsive Time Seen by Provider: 01/27/18 18:42 Source: EMS Mode of arrival: EMS Limitations: altered mental status Nursing Notes Reviewed: Yes Vital Signs Reviewed: Yes - History of Present Illness Pain Scale: 0 - Related Data Allergies Allergy/AdvReac Type Severity Reaction Status Date / Time citalopram [From Celexa] AdvReac See Verified 01/27/18 18:35 Comments Past Medical History - Past Medical History Medical history: Reports: hepatitis Psychiatric history: Reports: anxiety - Social History Smoking Status: Unknown if ever smoked Smokeless Tobacco Status: No Alcohol use: Reports: occasionally Drug use: Reports: marijuana, IV Drug Use Physical Exam - General Limitations: altered mental status General appearance: lethargic, in distress Course Vital Signs Temperature 96.5 F L 01/27/18 18:28 Pulse Rate 114 01/27/18 18:28 Respiratory Rate 24 01/27/18 18:28 Blood Pressure 114/89 01/27/18 18:28 O2 Sat by Pulse Oximetry 66 01/27/18 18:28 Temperature 96.5 F L 01/27/18 18:28 Pulse Rate 120 01/27/18 21:50 Respiratory Rate 20 01/27/18 21:06 Blood Pressure 127/85 01/27/18 21:50 O2 Sat by Pulse Oximetry 100 01/27/18 21:50 Oxygen Delivery Oxygen Delivery Ventilator Medical Decision Making - Lab Data Result diagrams: 01/27/18 18:41 01/27/18 18:41 Lab Results 01/27/18 01/27/18 01/27/18 Range/Units 18:41 18:41 18:42 WBC 28.0 H (4.3-11.1) K/mcL RBC 5.32 (4.19-5.50) M/mcL Hgb 16.4 (12.9-16.9) g/dL Hct 50.1 (37.5-50.1) % MCV 94.2 (83.0-100.0) fL MCH 30.8 (28.0-33.3) pg MCHC 32.7 (31.6-35.5) g/dL RDW 12.6 (11.5-14.5) % Plt Count 411 H (140-400) K/mcL MPV 8.5 L (9.4-12.4) fL Immature Gran % 1.3 (0-4) % Seg Neutrophils % 81.0 % Lymphocytes % 14.3 % Monocytes % 2.7 % Eosinophils % 0.4 % Basophils % 0.3 % Neutrophils # 22.7 H (1.6-8.9) K/mcL Lymphocytes # 4.0 (0.6-4.6) K/mcL Monocytes # 0.8 (0.0-1.3) K/mcL Eosinophils # 0.1 (0.0-0.6) K/mcL Basophils # 0.1 (0.0-0.2) K/mcL Toxic Granulation Present A (Not Present) Platelet Estimate Normal (Normal) Sample Site ABG pH (7.32-7.45) pH Units ABG pCO2 (35-45) mmHg ABG pO2 (85-104) mmHg ABG HCO3 (21-27) mEq/L ABG Total CO2 (20-26) mEq/L ABG O2 Saturation (95-98) % ABG Base Excess (-2 to 3) mEq/L Niles Test Respiration Rate O2 Delivery Device Blood Gas Modality Inspired O2 (1-15=lpm je89-196=%) Tidal Volume cc PEEP cm H2O Sodium 136 (136-145) mEq/L Potassium 4.1 (3.5-5.1) mEq/L Chloride 99 (98-107) mEq/L Carbon Dioxide 26 (23-29) mEq/L BUN 13 (6-20) mg/dL Creatinine 1.21 (0.70-1.30) mg/dL Est GFR ( Amer) > 60 (> 60) Est GFR (Non-Af Amer) > 60 (> 60) BUN/Creatinine Ratio 11 (6-26) Glucose 161 H (70-105) mg/dL Calculated Osmolality 286 (280-300) Lactic Acid 3.4 H (0.5-2.2) mmol/L Calcium 9.2 (8.6-10.3) mg/dL Total Bilirubin 0.4 (0.3-1.0) mg/dL Direct Bilirubin 0.1 (0.0-0.2) mg/dL Indirect Bilirubin 0.3 (0.0-1.2) mg/dL AST 38 (13-39) Units/L ALT 47 (7-52) Units/L Alkaline Phosphatase 88 (34-104) Units/L Ammonia (16-53) mcmol/L Troponin I < 0.03 (< 0.04) ng/mL Serum Total Protein 7.9 (6.4-8.9) g/dL Albumin 3.9 (3.5-5.7) g/dL Globulin 4.0 H (2.4-3.5) g/dL Albumin/Globulin Ratio 1.0 L (1.1-2.2) Urine Color (Yellow) Urine Clarity (Clear) Urine pH (5.0-8.0) pH Units Ur Specific [place] (1.010-1.025) Urine Protein (Neg-Trace) mg/dL Urine Glucose (UA) (Normal) mg/dL Urine Ketones (Negative) mg/dL Urine Blood (Negative) Urine Nitrite (Negative) Urine Bilirubin (Negative) Urine Urobilinogen (Normal) mg/dL Ur Leukocyte Esterase (Negative) Urine Microscopic WBC (0-3) per hpf Ur Squamous Epith Cells (None-Few) per lpf Urine Bacteria (None-Few) per hpf Hyaline Casts (None-Few) per lpf Urine Sperm Salicylates < 2.5 L (15.0-30.0) mg/dL Urine Opiates Screen (Tzpycd=913) ng/mL Acetaminophen < 10 L (10-20) mcg/mL Ur Barbiturates Screen (Rsqlxt=833) ng/mL Ur Phencyclidine Scrn (Cutoff=25) ng/mL Ur Amphetamines Screen (Leydai=3658) ng/mL U Benzodiazepines Scrn (Wbflko=732) ng/mL Urine Cocaine Screen (Cutoff= 300) ng/mL U Marijuana (THC) Screen (Cutoff = 50) ng/mL Ethyl Alcohol < 10 (Less than 10) mg/dL 01/27/18 01/27/18 01/27/18 Range/Units 19:14 19:14 19:29 WBC (4.3-11.1) K/mcL RBC (4.19-5.50) M/mcL Hgb (12.9-16.9) g/dL Hct (37.5-50.1) % MCV (83.0-100.0) fL MCH (28.0-33.3) pg MCHC (31.6-35.5) g/dL RDW (11.5-14.5) % Plt Count (140-400) K/mcL MPV (9.4-12.4) fL Immature Gran % (0-4) % Seg Neutrophils % % Lymphocytes % % Monocytes % % Eosinophils % % Basophils % % Neutrophils # (1.6-8.9) K/mcL Lymphocytes # (0.6-4.6) K/mcL Monocytes # (0.0-1.3) K/mcL Eosinophils # (0.0-0.6) K/mcL Basophils # (0.0-0.2) K/mcL Toxic Granulation (Not Present) Platelet Estimate (Normal) Sample Site R Radial ABG pH 7.30 L (7.32-7.45) pH Units ABG pCO2 55 H (35-45) mmHg ABG pO2 76 L (85-104) mmHg ABG HCO3 27 (21-27) mEq/L ABG Total CO2 29 H (20-26) mEq/L ABG O2 Saturation 93 L (95-98) % ABG Base Excess -1 (-2 to 3) mEq/L Niles Test Positive Respiration Rate 16 O2 Delivery Device Adult Vent Blood Gas Modality ASSIST CONTROL Inspired O2 100.0 (1-15=lpm kg36-352=%) Tidal Volume 550 cc PEEP 12 cm H2O Sodium (136-145) mEq/L Potassium (3.5-5.1) mEq/L Chloride (98-107) mEq/L Carbon Dioxide (23-29) mEq/L BUN (6-20) mg/dL Creatinine (0.70-1.30) mg/dL Est GFR ( Amer) (> 60) Est GFR (Non-Af Amer) (> 60) BUN/Creatinine Ratio (6-26) Glucose (70-105) mg/dL Calculated Osmolality (280-300) Lactic Acid (0.5-2.2) mmol/L Calcium (8.6-10.3) mg/dL Total Bilirubin (0.3-1.0) mg/dL Direct Bilirubin (0.0-0.2) mg/dL Indirect Bilirubin (0.0-1.2) mg/dL AST (13-39) Units/L ALT (7-52) Units/L Alkaline Phosphatase (34-104) Units/L Ammonia (16-53) mcmol/L Troponin I (< 0.04) ng/mL Serum Total Protein (6.4-8.9) g/dL Albumin (3.5-5.7) g/dL Globulin (2.4-3.5) g/dL Albumin/Globulin Ratio (1.1-2.2) Urine Color Yellow (Yellow) Urine Clarity Clear (Clear) Urine pH 6.0 (5.0-8.0) pH Units Ur Specific [place] >= 1.030 H (1.010-1.025) Urine Protein 30 H (Neg-Trace) mg/dL Urine Glucose (UA) Normal (Normal) mg/dL Urine Ketones Negative (Negative) mg/dL Urine Blood Negative (Negative) Urine Nitrite Negative (Negative) Urine Bilirubin Negative (Negative) Urine Urobilinogen Normal (Normal) mg/dL Ur Leukocyte Esterase Negative (Negative) Urine Microscopic WBC 3-5 H (0-3) per hpf Ur Squamous Epith Cells Few (None-Few) per lpf Urine Bacteria Few (None-Few) per hpf Hyaline Casts Few (None-Few) per lpf Urine Sperm Present Salicylates (15.0-30.0) mg/dL Urine Opiates Screen Positive H (Bputys=827) ng/mL Acetaminophen (10-20) mcg/mL Ur Barbiturates Screen Negative (Kqkwzk=647) ng/mL Ur Phencyclidine Scrn Negative (Cutoff=25) ng/mL Ur Amphetamines Screen Positive H (Ninvvm=3048) ng/mL U Benzodiazepines Scrn Positive H (Qdxrcn=893) ng/mL Urine Cocaine Screen Negative (Cutoff= 300) ng/mL U Marijuana (THC) Screen Positive H (Cutoff = 50) ng/mL Ethyl Alcohol (Less than 10) mg/dL 01/27/18 Range/Units 20:20 WBC (4.3-11.1) K/mcL RBC (4.19-5.50) M/mcL Hgb (12.9-16.9) g/dL Hct (37.5-50.1) % MCV (83.0-100.0) fL MCH (28.0-33.3) pg MCHC (31.6-35.5) g/dL RDW (11.5-14.5) % Plt Count (140-400) K/mcL MPV (9.4-12.4) fL Immature Gran % (0-4) % Seg Neutrophils % % Lymphocytes % % Monocytes % % Eosinophils % % Basophils % % Neutrophils # (1.6-8.9) K/mcL Lymphocytes # (0.6-4.6) K/mcL Monocytes # (0.0-1.3) K/mcL Eosinophils # (0.0-0.6) K/mcL Basophils # (0.0-0.2) K/mcL Toxic Granulation (Not Present) Platelet Estimate (Normal) Sample Site ABG pH (7.32-7.45) pH Units ABG pCO2 (35-45) mmHg ABG pO2 (85-104) mmHg ABG HCO3 (21-27) mEq/L ABG Total CO2 (20-26) mEq/L ABG O2 Saturation (95-98) % ABG Base Excess (-2 to 3) mEq/L Niles Test Respiration Rate O2 Delivery Device Blood Gas Modality Inspired O2 (1-15=lpm [id number]=%) Tidal Volume cc PEEP cm H2O Sodium (136-145) mEq/L Potassium (3.5-5.1) mEq/L Chloride (98-107) mEq/L Carbon Dioxide (23-29) mEq/L BUN (6-20) mg/dL Creatinine (0.70-1.30) mg/dL Est GFR ( Amer) (> 60) Est GFR (Non-Af Amer) (> 60) BUN/Creatinine Ratio (6-26) Glucose (70-105) mg/dL Calculated Osmolality (280-300) Lactic Acid (0.5-2.2) mmol/L Calcium (8.6-10.3) mg/dL Total Bilirubin (0.3-1.0) mg/dL Direct Bilirubin (0.0-0.2) mg/dL Indirect Bilirubin (0.0-1.2) mg/dL AST (13-39) Units/L ALT (7-52) Units/L Alkaline Phosphatase (34-104) Units/L Ammonia 57 H (16-53) mcmol/L Troponin I (< 0.04) ng/mL Serum Total Protein (6.4-8.9) g/dL Albumin (3.5-5.7) g/dL Globulin (2.4-3.5) g/dL Albumin/Globulin Ratio (1.1-2.2) Urine Color (Yellow) Urine Clarity (Clear) Urine pH (5.0-8.0) pH Units Ur Specific [place] (1.010-1.025) Urine Protein (Neg-Trace) mg/dL Urine Glucose (UA) (Normal) mg/dL Urine Ketones (Negative) mg/dL Urine Blood (Negative) Urine Nitrite (Negative) Urine Bilirubin (Negative) Urine Urobilinogen (Normal) mg/dL Ur Leukocyte Esterase (Negative) Urine Microscopic WBC (0-3) per hpf Ur Squamous Epith Cells (None-Few) per lpf Urine Bacteria (None-Few) per hpf Hyaline Casts (None-Few) per lpf Urine Sperm Salicylates (15.0-30.0) mg/dL Urine Opiates Screen (Rqbcxh=455) ng/mL Acetaminophen (10-20) mcg/mL Ur Barbiturates Screen (Ubrosv=048) ng/mL Ur Phencyclidine Scrn (Cutoff=25) ng/mL Ur Amphetamines Screen (Hifbhn=2685) ng/mL U Benzodiazepines Scrn (Fjgpzm=312) ng/mL Urine Cocaine Screen (Cutoff= 300) ng/mL U Marijuana (THC) Screen (Cutoff = 50) ng/mL Ethyl Alcohol (Less than 10) mg/dL Critical Care Time Critical Care Time: Yes Total Critical Care Time: 90 Attestation: Critical care performed: Time is exclusive of separately billable procedures. Time includes: direct patient care, patient reassessment, coordination of patient care, interpretation of data (laboratory data, radiology data, and respiratory data), review of patient's medical records, medical consultation and documentation of patient care. Procedures included in critical care time: Procedures excluded from critical care time: Endotracheal intubation Attestation Statement - Attestation Attestation: I, Dylan Bush MD, personally evaluated this patient and discussed their management with the resident physician. I reviewed the resident's note and agree with the documented findings, medical decision making, and plan of care. This patient was signed out at shift change from Dr. Mcginnis and Dr. Delia Chow. Please refer to their notes for complete details of the history and physical examination. Patient is a 32-year-old male who presented as an unresponsive overdose. He received 8 mg of intranasal Narcan and an additional 4 mg of IV Narcan prior to arrival. He was alert and able to talk in full sentences on arrival however his oxygen saturation 60%. Patient was intubated orally. Workup revealed extensive aspiration pneumonia bilaterally, worse on the right. Patient had multiple CTs and was in the emergency department for several hours requiring sedation management and ventilator management. IV antibiotics initiated. Cultures obtained. On exam patient is a well-developed well-nourished male who is intubated. Breath sounds are decreased bilaterally with dependent rales bilaterally. Heart tachycardic and regular. Labs reviewed. CTs reviewed. CT of the head and cervical spine was negative. CTA of the neck negative. CTA of the chest showed: 1. No evidence for pulmonary embolism. 2. Extensive consolidative changes throughout the bilateral lungs with air bronchograms present. Findings suggestive of aspiration/pneumonia. 3. Interlobular septal thickening and scattered ground- glass opacities suggesting pulmonary edema. 4. Endotracheal tube in place which appears appropriately positioned. The hospitalist, Dr. Hoffman, was consulted and accepted admission of the patient.
[2018-01-27] MEDS: 0.9 % Sodium Chloride 1,000 ML IVC SCH (22:34)
[2018-01-27] MEDS: *HR* Heparin 5,000 UNIT/ML VIAL SQ SCH (22:34)
[2018-01-27] MEDS: Ipratropium/Albuterol Neb 3 ML IH SCH (23:01)
[2018-01-28] MEDS: Dexmedetomidine HCl 200 MCG/50 ML MLS IVC SCH ×2 (00:45→05:05)
[2018-01-28 03:33] LABS: Immature Granulocytes % 0.7 % (0-4)
[2018-01-28 03:35] LABS: Basophils # 0.1 K/mcL (0.0-0.2); Basophils % 0.4 %; Hematocrit 44.2 % (37.5-50.1); Hemoglobin 14.4 g/dL (12.9-16.9); Lymphocytes # 1.6 K/mcL (0.6-4.6); Lymphocytes % 5.6 %; Mean Corpuscular HGB Conc 32.6 g/dL (31.6-35.5); Mean Corpuscular Hemoglobin 30.8 pg (28.0-33.3); Mean Corpuscular Volume 94.4 fL (83.0-100.0); Mean Platelet Volume 8.9 fL (9.4-12.4); Monocytes # 1.3 K/mcL (0.0-1.3); Monocytes % 4.3 %; Platelet Count 297 K/mcL (140-400); Red Blood Count 4.68 M/mcL (4.19-5.50); Red Cell Distribution Width 12.7 % (11.5-14.5)
[2018-01-28] MEDS: Piperacillin/Tazobactam 3.375 GM in 0.9 % Sodium Chloride Mini Bag 100 ML IVPB SCH ×3 (03:42→19:38)
[2018-01-28] MEDS: Ipratropium/Albuterol Neb 3 ML IH SCH ×4 (03:42→22:26)
[2018-01-28 03:58] LABS: Platelet Estimate Normal (Normal); Toxic Granulation Present (Not Present)
[2018-01-28 04:17] LABS: BUN/Creatinine Ratio 12 (6-26); Blood Urea Nitrogen 10 mg/dL (6-20); Calcium 7.8 mg/dL (8.6-10.3); Carbon Dioxide 14 mEq/L (23-29); Chloride 105 mEq/L (98-107); Glucose 75 mg/dL (70-105); Magnesium 1.6 mg/dL (1.6-2.6); Osmolality,Calculated 274 (280-300); Potassium 5.4 mEq/L (3.5-5.1); Sodium 133 mEq/L (136-145); Thyroid Stimulating Hormone 0.767 mcIU/mL (0.340-5.600); eGFR For African Americans > 60 (> 60); eGFR For Non-African Americans > 60 (> 60)
[2018-01-28] MEDS: *HR* Heparin 5,000 UNIT/ML VIAL SQ SCH ×2 (05:53→22:02)
[2018-01-28] MEDS: 0.9 % Sodium Chloride 1,000 ML IVC SCH (05:54)
[2018-01-28 07:03] LABS: ABG Base Excess 0 mEq/L (-2 to 3); ABG HCO3 26 mEq/L (21-27); ABG Oxygen Saturation 96 % (95-98); ABG PCO2 44 mmHg (35-45); ABG PH 7.38 pH Units (7.32-7.45); ABG PO2 86 mmHg (85-104); ABG TCO2 27 mEq/L (20-26); Blood Gas Modality VC; Blood Gas Respiration Rate 20; Blood Gas VT 550 cc
--- NOTE | 2018-01-28 07:11 | Pulmonology Consult Note ---
<Javid Gonzalez W - Last Filed: 01/28/18 10:01> Date of Encounter: 01/28/18 Medications and Allergies No Known Home Drugs 01/28/18 [History] 3 Allergy/AdvReac Type Severity Reaction Status Date / Time citalopram [From Celexa] AdvReac See Verified 01/27/18 18:35 Comments All Systems: The remainder of the systems were reviewed and are negative Physical Examination Vital Signs: Vital Signs, Last 4 Hours Temp Pulse Resp BP Pulse Ox 01/28/18 05:51 86 20 108/68 97 01/28/18 05:30 20 97 01/28/18 05:00 91 20 121/80 99 01/28/18 04:00 98.9 F 98 20 124/75 99 01/28/18 03:42 20 97 Ventilator Settings Ventilator Settings: Ventilator Settings, Last 8 Hours Ventilator Tidal Volume 550 Setting Ventilator Tidal Volume 550 Setting Ventilator Tidal Volume 550 Setting Ventilator Tidal Volume 550 Setting Ventilator Tidal Volume 550 Setting Ventilator Tidal Volume 550 Setting Ventilator Tidal Volume 550 Setting Ventilator Tidal Volume 550 Setting Ventilator Tidal Volume 550 Setting Ventilator Tidal Volume 550 Setting Ventilator Respiratory Rate 20 Setting Ventilator Respiratory Rate 20 Setting Ventilator Respiratory Rate 20 Setting Ventilator Respiratory Rate 20 Setting Ventilator Respiratory Rate 20 Setting Ventilator Respiratory Rate 20 Setting Ventilator Respiratory Rate 20 Setting Ventilator Respiratory Rate 20 Setting Ventilator Respiratory Rate 20 Setting Ventilator Respiratory Rate 20 Setting Actual Respiratory Rate 20 Actual Respiratory Rate 20 Actual Respiratory Rate 20 Actual Respiratory Rate 20 Actual Respiratory Rate 20 Actual Respiratory Rate 20 Actual Respiratory Rate 20 Actual Respiratory Rate 20 Actual Respiratory Rate 20 Actual Respiratory Rate 20 Positive End Expiratory 5 Pressure Positive End Expiratory 5 Pressure Positive End Expiratory 5 Pressure Positive End Expiratory 5 Pressure Positive End Expiratory 5 Pressure Positive End Expiratory 5 Pressure Positive End Expiratory 8 Pressure Positive End Expiratory 8 Pressure Positive End Expiratory 8 Pressure Positive End Expiratory 8 Pressure Peak Inspiratory Airway 22 Pressure Peak Inspiratory Airway 23 Pressure Peak Inspiratory Airway 22 Pressure Peak Inspiratory Airway 22 Pressure Peak Inspiratory Airway 22 Pressure Peak Inspiratory Airway 21 Pressure Peak Inspiratory Airway 21 Pressure Peak Inspiratory Airway 21 Pressure Peak Inspiratory Airway 21 Pressure Peak Inspiratory Airway 25 Pressure Results - Laboratory Findings CBC and BMP: 01/28/18 02:51 01/28/18 02:51 ABG ABG pH 7.38 pH Units (7.32-7.45) 01/28/18 06:58 ABG pCO2 44 mmHg (35-45) 01/28/18 06:58 ABG pO2 86 mmHg (85-104) 01/28/18 06:58 ABG O2 Saturation 96 % (95-98) 01/28/18 06:58 Abnormal lab findings: Abnormal lab results WBC 29.2 K/mcL (4.3-11.1) H 01/28/18 02:51 MPV 8.9 fL (9.4-12.4) L 01/28/18 02:51 Neutrophils # 26.0 K/mcL (1.6-8.9) H 01/28/18 02:51 Toxic Granulation Present (Not Present) A 01/28/18 02:51 ABG Total CO2 27 mEq/L (20-26) H 01/28/18 06:58 Sodium 133 mEq/L (136-145) L 01/28/18 02:51 Potassium 5.4 mEq/L (3.5-5.1) H D 01/28/18 02:51 Carbon Dioxide 14 mEq/L (23-29) L 01/28/18 02:51 Calculated Osmolality 274 (280-300) L 01/28/18 02:51 Calcium 7.8 mg/dL (8.6-10.3) L 01/28/18 02:51 Ammonia 57 mcmol/L (16-53) H 01/27/18 20:20 Globulin 4.0 g/dL (2.4-3.5) H 01/27/18 18:41 Albumin/Globulin Ratio 1.0 (1.1-2.2) L 01/27/18 18:41 Ur Specific [place] >= 1.030 (1.010-1.025) H 01/27/18 19:14 Urine Protein 30 mg/dL (Neg-Trace) H 01/27/18 19:14 Urine Microscopic WBC 3-5 per hpf (0-3) H 01/27/18 19:14 Salicylates < 2.5 mg/dL (15.0-30.0) L 01/27/18 18:41 Urine Opiates Screen Positive ng/mL (Bdwfdf=065) H 01/27/18 19:14 Acetaminophen < 10 mcg/mL (10-20) L 01/27/18 18:41 Ur Amphetamines Screen Positive ng/mL (Ofyaie=3619) H 01/27/18 19:14 U Benzodiazepines Scrn Positive ng/mL (Wsrrln=896) H 01/27/18 19:14 U Marijuana (THC) Screen Positive ng/mL (Cutoff = 50) H 01/27/18 19:14 - Clinical Findings Intake & Output: Intake & Output 01/27/18 01/27/18 01/28/18 15:59 23:59 07:59 Intake Total 10 / 2150.0 1084.7 / 1084.7 Output Total 375 / 375 600 / 600 Balance -365 / 1775.0 484.7 / 484.7 Weight 78.7 kg Consult Discharge Plan - Plan Referrals: NONE,PCP [Primary Care Provider] - - Attending Attestation I examined this patient and my medical decision-making was reviewed with the Resident Physician. I agree with the documented findings, disposition and treatment plan as described except to the extent set forth below. We independently had [id number] contact with the patient Patient seen and examined at bedside Labs, radiology, chart personally reviewed. Management was reviewed during multidisciplinary critical care rounds. CLIN APPLICATION SPECIALIST: Acute Encephalopathy s/t unintentional drug overdose now following commands no acute deficits, mild-moderate agitation Pulm: Acurte respiratory failure requiring MV now extubated, Requiring PAP support for aspiration PNA Cards: BP monitred with plan to deescalate FEN-GI: NPO for now Renal: UOP monitored, Mild hyper K+ replete ID: Treating for Aspiration PNA with plan to deescalate Heme/Onc: DVT prophylaxis given Endo: Glucose Monitored Integ/MSK: Skin Care per routine ICU Nursing Protocol to prevent ulcers. Lines: All lines examined without evidence of infection : Dispo: Monitor in ICU s/p Extubation. CODE: Full. <Dinh Lan - Last Filed: 01/28/18 16:01> Date of Encounter: 01/28/18 Time of Encounter: 08:30 Assessment and Plan (1) Acute hypoxemic respiratory failure Current Visit: Yes Status: Acute Most likely secondary to overdose and aspiration pneumonia. Patient was intubated upon arrival. ABGs were within normal limits today. Patient was extubated and transitioned to CPAP. Current O2 saturation of 94%. - Continue CPAP with goal to transition to RA when stable. Update @ 1317: Patient off CPAP. O2 sat of 94% on NC 4 L. Patient is doing well. Patient will be transferred out of the ICU and to telemetry floor. Spoke to Dr. Palencia who agreed to accept the patient. (2) Severe sepsis Current Visit: Yes Status: Acute Lactic acid is normal eyes yesterday from 3.4 down to 0.9. Patient's vitals have been stable. He does continue to have leukocytosis currently at 29 (28 on admission). Suspected source from aspiration pneumonia. On Zosyn day #2. - Continue Zosyn. Update @ 1333: BP stable. IVF discontinued. Patient passed bedside swallow. Will transition to regular diet. (3) Aspiration pneumonia Current Visit: Yes Status: Acute Was started on Vanco and Zosyn in the ED. Currently on day 2 of Zosyn for now. - Follow up with blood cultures. - Follow up with sputum cultures. - Continue duo nebs. - Continue Zosyn. - Continue to trend white blood cell count. Qualifiers: Aspiration pneumonia type: unspecified Laterality: unspecified laterality Lung location: unspecified part of lung Qualified Code(s): J69.0 - Pneumonitis due to inhalation of food and vomit (4) Overdose Current Visit: Yes Status: Acute c/w transition social worker. Qualifiers: Encounter type: initial encounter Injury intent: accidental or unintentional Qualified Code(s): T50.901A - Poisoning by unspecified drugs, medicaments and biological substances, accidental (unintentional), initial encounter (5) Hyperkalemia Current Visit: Yes Status: Acute Potassium level at 5.4. Possibly secondary to dehydration. - Will recheck potassium later this afternoon. Will treat if continues to be elevated. Update @ 1453: Potassium at 4.7. (6) DVT prophylaxis Current Visit: Yes Status: Acute On heparin subcutaneous. History of Present Illness Consult date: 01/28/18 Requesting physician: Kiera Hoffman Reason for consult: dyspnea Chief complaint: Dyspnea History of present illness: Patient is a 32-year-old male past medical history of hepatitis C and polysubstance abuse that was brought in for concern for overdose. O2 saturation upon arrival was 60% and patient was subsequently intubated. Patient was also tachycardic and labs showed leukocytosis and level of 28. ABG showed mild tarry acidosis. Lactic acid upon arrival was 3.4. UA was negative for infection. Chest x-ray showed bilateral airspace disease greater on the right. Chest CT showed ground-glass opacities and extensive consolidative changes with evidence of air bronchograms in dependent positions with the right greater than the left, indicative of aspiration pneumonia. Past Med Surg Social Fam HX - Past Medical History Medical history: hepatitis Psychiatric history: anxiety - Social History Smoking Status: Unknown if ever smoked Smokeless Tobacco Status: No Alcohol use: occasionally Drug use: marijuana, IV Drug Use All Systems: The remainder of the systems were reviewed and are negative - Constitutional Constitutional: weakness, no fever(s) - Cardiovascular Cardiovascular: dyspnea, no chest pain, no chest pain at rest, no palpitations - Respiratory Respiratory: dyspnea - Gastrointestinal Gastrointestinal: abdominal pain, no nausea, no vomiting - Musculoskeletal Musculoskeletal: weakness Physical Examination Vital Signs: Vital Signs, Last 4 Hours Temp Pulse Resp BP Pulse Ox 01/28/18 05:51 86 20 108/68 97 01/28/18 05:30 20 97 01/28/18 05:00 91 20 121/80 99 01/28/18 04:00 98.9 F 98 20 124/75 99 01/28/18 03:42 20 97 General appearance: no acute distress Eyes: nonicteric ENT: oropharynx moist Neck: supple Effort: normal Inspection: normal Auscultation: bilateral: clear Percussion: bilateral: not dull Tactile fremitus: bilateral: normal Cardiovascular: regular rate and rhythm Gastrointestinal: normoactive bowel sounds, soft, tender (Minor diffuse tenderness with deep palpation), non-distended Integumentary: normal Extremities: no cyanosis, no edema, no clubbing Musculoskeletal: no deformities normal mental status mood appropriate, affect normal Ventilator Settings Ventilator Settings: Ventilator Settings, Last 8 Hours Ventilator Tidal Volume 550 Setting Ventilator Tidal Volume 550 Setting Ventilator Tidal Volume 550 Setting Ventilator Tidal Volume 550 Setting Ventilator Tidal Volume 550 Setting Ventilator Tidal Volume 550 Setting Ventilator Tidal Volume 550 Setting Ventilator Tidal Volume 550 Setting Ventilator Tidal Volume 550 Setting Ventilator Tidal Volume 550 Setting Ventilator Respiratory Rate 20 Setting Ventilator Respiratory Rate 20 Setting Ventilator Respiratory Rate 20 Setting Ventilator Respiratory Rate 20 Setting Ventilator Respiratory Rate 20 Setting Ventilator Respiratory Rate 20 Setting Ventilator Respiratory Rate 20 Setting Ventilator Respiratory Rate 20 Setting Ventilator Respiratory Rate 20 Setting Ventilator Respiratory Rate 20 Setting Actual Respiratory Rate 20 Actual Respiratory Rate 20 Actual Respiratory Rate 20 Actual Respiratory Rate 20 Actual Respiratory Rate 20 Actual Respiratory Rate 20 Actual Respiratory Rate 20 Actual Respiratory Rate 20 Actual Respiratory Rate 20 Actual Respiratory Rate 20 Positive End Expiratory 5 Pressure Positive End Expiratory 5 Pressure Positive End Expiratory 5 Pressure Positive End Expiratory 5 Pressure Positive End Expiratory 5 Pressure Positive End Expiratory 5 Pressure Positive End Expiratory 8 Pressure Positive End Expiratory 8 Pressure Positive End Expiratory 8 Pressure Positive End Expiratory 8 Pressure Peak Inspiratory Airway 22 Pressure Peak Inspiratory Airway 23 Pressure Peak Inspiratory Airway 22 Pressure Peak Inspiratory Airway 22 Pressure Peak Inspiratory Airway 22 Pressure Peak Inspiratory Airway 21 Pressure Peak Inspiratory Airway 21 Pressure Peak Inspiratory Airway 21 Pressure Peak Inspiratory Airway 21 Pressure Peak Inspiratory Airway 25 Pressure Results - Laboratory Findings CBC and BMP: 01/28/18 02:51 01/28/18 13:01 ABG ABG pH 7.38 pH Units (7.32-7.45) 01/28/18 06:58 ABG pCO2 44 mmHg (35-45) 01/28/18 06:58 ABG pO2 86 mmHg (85-104) 01/28/18 06:58 ABG O2 Saturation 96 % (95-98) 01/28/18 06:58 Abnormal lab findings: Abnormal lab results WBC 29.2 K/mcL (4.3-11.1) H 01/28/18 02:51 MPV 8.9 fL (9.4-12.4) L 01/28/18 02:51 Neutrophils # 26.0 K/mcL (1.6-8.9) H 01/28/18 02:51 Toxic Granulation Present (Not Present) A 01/28/18 02:51 ABG Total CO2 27 mEq/L (20-26) H 01/28/18 06:58 Sodium 133 mEq/L (136-145) L 01/28/18 02:51 Potassium 5.4 mEq/L (3.5-5.1) H D 01/28/18 02:51 Carbon Dioxide 14 mEq/L (23-29) L 01/28/18 02:51 Calculated Osmolality 274 (280-300) L 01/28/18 02:51 Calcium 7.8 mg/dL (8.6-10.3) L 01/28/18 02:51 Ammonia 57 mcmol/L (16-53) H 01/27/18 20:20 Globulin 4.0 g/dL (2.4-3.5) H 01/27/18 18:41 Albumin/Globulin Ratio 1.0 (1.1-2.2) L 01/27/18 18:41 Ur Specific [place] >= 1.030 (1.010-1.025) H 01/27/18 19:14 Urine Protein 30 mg/dL (Neg-Trace) H 01/27/18 19:14 Urine Microscopic WBC 3-5 per hpf (0-3) H 01/27/18 19:14 Salicylates < 2.5 mg/dL (15.0-30.0) L 01/27/18 18:41 Urine Opiates Screen Positive ng/mL (Lspkkh=578) H 01/27/18 19:14 Acetaminophen < 10 mcg/mL (10-20) L 01/27/18 18:41 Ur Amphetamines Screen Positive ng/mL (Exxezy=2004) H 01/27/18 19:14 U Benzodiazepines Scrn Positive ng/mL (Huqbqr=608) H 01/27/18 19:14 U Marijuana (THC) Screen Positive ng/mL (Cutoff = 50) H 01/27/18 19:14 - Clinical Findings Intake & Output: Intake & Output 01/27/18 01/27/18 01/28/18 15:59 23:59 07:59 Intake Total 0.0 1084.7 / 1084.7 Output Total 375 / 375 600 / 600 Balance -365 / 1775.0 484.7 / 484.7 Weight 78.7 kg
--- NOTE | 2018-01-28 09:55 | Sepsis Event Note ---
Sepsis Reassessment Note - Evaluation Sepsis Screen: Sepsis Risk Current Stage of Sepsis: ruled out Reason for ruling out sepsis: Does not meet 2 SIRS criteria. Only has leukocytosis of 29. Lactic acidosis yesterday at 0.9. Possible Source of Sepsis: pulmonary - Focused Exam Date of Encounter: 01/28/18 Time of Encounter: 08:30 Vital Signs: Vital Signs Temp Pulse Resp BP Pulse Ox 01/28/18 09:21 19 109/61 99 01/28/18 09:00 94 20 109/61 98 01/28/18 08:00 101 25 125/75 90 01/28/18 07:42 99.6 F 01/28/18 07:36 112 01/28/18 07:30 131/74 01/28/18 07:00 99.6 F 92 22 107/65 97 01/28/18 05:51 86 20 108/68 97 01/28/18 05:30 20 97 01/28/18 05:00 91 20 121/80 99 01/28/18 04:00 98.9 F 98 20 124/75 99 01/28/18 03:42 20 97 01/28/18 03:00 90 20 118/69 98 01/28/18 02:00 89 20 113/73 98 01/28/18 00:50 101 21 116/68 98 01/28/18 00:43 21 98 01/27/18 23:56 104 20 112/69 98 01/27/18 23:01 20 100 01/27/18 22:53 99.7 F H 106 20 129/79 98 01/27/18 22:47 104 Respiratory Exam: Present: CTA bilaterally Cardiovascular Exam: Present: RRR Capillary Refill: < 2 seconds Peripheral Pulse Strength: 3+ normal Peripheral Pulse Location: Posterior Tibial Skin Exam: normal turgor
--- NOTE | 2018-01-28 10:04 | Electrocardiograph Report ---
[place] [id number] Test Date: 2018-01-27 Pat Name: Sharath Palacios Department: 103 Room: 02 Gender: M Emergency Vehicle Dispatcher: KARAN : 1985 Requested By: Delia Chow Order Number: [id number] Reading MD: Bishop Grady Measurements Intervals [place] Rate: 118 P: ME: 0 QRS: 97 QRSD: 93 T: 65 QT: 280 QTc: 350 Interpretive Statements SINUS TACHYCARDIA POSSIBLE LEFT ATRIAL ENLARGEMENT BORDERLINE RIGHT AXIS DEVIATION Electronically Signed On 01-28-2018 10:02:59 EDT by Bishop Grady
[2018-01-28] MEDS ORDERED: Acetaminophen 325 MG TABLET PO PRN (14:33)
[2018-01-28] MEDS ORDERED: Ondansetron 4 MG/2 ML VIAL IVP PRN (14:33)
[2018-01-28] MEDS ORDERED: Naloxone 0.4 MG/ML INJ IVP PRN (14:33)
[2018-01-29 03:12] LABS: Immature Granulocytes % 1.1 % (0-4)
[2018-01-29 03:13] LABS: Basophils # 0.1 K/mcL (0.0-0.2); Basophils % 0.2 %; Eosinophils # 0.1 K/mcL (0.0-0.6); Eosinophils % 0.3 %; Hematocrit 41.1 % (37.5-50.1); Hemoglobin 13.8 g/dL (12.9-16.9); Lymphocytes # 3.2 K/mcL (0.6-4.6); Lymphocytes % 11.7 %; Mean Corpuscular HGB Conc 33.6 g/dL (31.6-35.5); Mean Corpuscular Hemoglobin 30.6 pg (28.0-33.3); Mean Corpuscular Volume 91.1 fL (83.0-100.0); Mean Platelet Volume 9.2 fL (9.4-12.4); Monocytes # 1.6 K/mcL (0.0-1.3); Monocytes % 5.8 %; Neutrophils # 22.4 K/mcL (1.6-8.9); Platelet Count 288 K/mcL (140-400); Red Blood Count 4.51 M/mcL (4.19-5.50); Red Cell Distribution Width 12.7 % (11.5-14.5); Segmented Neutrophils % 80.9 %
[2018-01-29 03:46] LABS: Platelet Estimate Normal (Normal)
[2018-01-29] MEDS: Piperacillin/Tazobactam 3.375 GM in 0.9 % Sodium Chloride Mini Bag 100 ML IVPB SCH (03:53)
[2018-01-29] MEDS: Ipratropium/Albuterol Neb 3 ML IH SCH ×2 (03:57→09:16)
[2018-01-29] MEDS: *HR* Heparin 5,000 UNIT/ML VIAL SQ SCH (06:12)
[2018-01-29 07:41] LABS: BUN/Creatinine Ratio 11 (6-26); Blood Urea Nitrogen 8 mg/dL (6-20); Calcium 8.6 mg/dL (8.6-10.3); Carbon Dioxide 21 mEq/L (23-29); Chloride 104 mEq/L (98-107); Glucose 91 mg/dL (70-105); Osmolality,Calculated 276 (280-300); Potassium 3.9 mEq/L (3.5-5.1); Sodium 134 mEq/L (136-145); eGFR For African Americans > 60 (> 60); eGFR For Non-African Americans > 60 (> 60)
--- NOTE | 2018-01-29 15:37 | Event Note ---
Date of Encounter: 01/29/18 Time of Encounter: 11:00 Was at a 5 by RN the patient wanted to leave AMA. Patient briefly seen at bedside; WBC 20 7K, blood cultures and sputum culture still pending. Advised patient I would like him to stay overnight with likely discharge tomorrow however patient refused. He gets anxious 20s diabetes: His family. I did give him an Rx for Augmentin for possible aspiration pneumonia. Advised to follow- up with his PCP and/or return to ER if chest pain/SOB recurs. Also advise recreational/illicit drug use cessation.
== END 2018-01-29 12:24 | disposition left against medical advice (07) | DRG 720 ==
LOC: EMEROO 18:26 → ICNU 20:10 → 3BNU 01-29 06:41
PROVIDERS: ADMIT Internal Medicine; ATTEND Internal Medicine